=== PATIENT | female | born 1940 | race Caucasian/White ===

== ENCOUNTER → 2017-10-07 | Outpatient (CLI) | payer MEDICARE ==
[~2017-10-07] MED LIST: ESTR10TA VG; FLUT1DIS28 IH; HYDR1TAB8 OP; [UNRECOGNIZED DRUG - CODE] PO
--- NOTE | 2017-10-07 12:01 | Diagnostic Imaging Report ---
INDICATION: Routine screening. Comparison is made with prior mammogram from 06/08/2015 and 05/14/2014. 2-D and 3-D bilateral screening mammography was performed with a Computer Aided Detection (CAD) system. FINDINGS: Scattered fibroglandular densities are identified bilaterally. The breast parenchymal pattern is stable. No dominant mass or malignant-appearing microcalcifications are seen. Axillae are unremarkable. IMPRESSION: No mammographic features suspicious for malignancy are identified. ACR BI-RADS Category 1: Negative. Result letter will be mailed to the patient. Note: At least 10% of breast cancer is not imaged by mammography. Dictated by: Dictated on workstation # [id number]
== END ==
LOC: RAD 09:04
PROVIDERS: ATTEND Obstetrics & Gynecology
DX: Z12.31 Encounter for screening mammogram for malignant neoplasm of breast (principal)
CPT/HCPCS: 77067

== ENCOUNTER → 2018-10-13 | Outpatient (CLI) | payer MEDICARE ==
--- NOTE | 2018-10-13 21:01 | Diagnostic Imaging Report ---
INDICATION: Screening TECHNIQUE: The current study was also evaluated with a Computer Aided Detection (CAD) system. 3-D Tomographic imaging was also performed. COMPARISONS: 10/07/2017, 06/08/2015, 11/30/2014 and 05/14/2014. FINDINGS: There are scattered fibroglandular densities bilaterally. There is no dominant mass, spiculated lesion or suspicious calcification identified. A few benign type calcifications are identified. The skin, nipples and axillae are unremarkable. IMPRESSION: BI-RADS Category 2 benign. ACR BI-RADS Category 2: Benign findings. Result letter will be mailed to the patient. Note: At least 10% of breast cancer is not imaged by mammography. Dictated by: Dictated on workstation # [id number]
== END ==
LOC: RAD 07:53
PROVIDERS: ATTEND Family Medicine
DX: Z12.31 Encounter for screening mammogram for malignant neoplasm of breast (principal)
CPT/HCPCS: 77067

== ENCOUNTER → 2019-10-16 | Outpatient (CLI) | payer MEDICARE ==
--- NOTE | 2019-10-16 12:32 | Diagnostic Imaging Report ---
INDICATION: Routine screening. Comparison is made prior mammogram from 10/13/2018 and 10/07/2017. 2-D and 3-D bilateral screening mammography was performed with CAD. Scattered fibroglandular densities are identified bilaterally. A nodular density medial right breast mid depth is stable and consistent with benign etiology. No new mass or malignant appearing microcalcifications are seen. Axillae are unremarkable. IMPRESSION: BI-RADS Category 2 No mammographic features suspicious for malignancy are identified. ACR BI-RADS Category 2: Benign findings. Result letter will be mailed to the patient. Note: At least 10% of breast cancer is not imaged by mammography. Dictated by: Dictated on workstation # [id number]
== END ==
LOC: RAD 08:30
PROVIDERS: ATTEND Family Medicine
DX: Z12.31 Encounter for screening mammogram for malignant neoplasm of breast (principal)
CPT/HCPCS: 77063; 77067

== ENCOUNTER 2021-10-04 04:52 | Emergency (ER) | payer MEDICARE ==
[~2021-10-04] VITALS: Ht 162.5 cm; Wt 73.4 kg
[2021-10-04] MEDS ORDERED: KETOROLAC 30 MG/ML VIAL IVP STA (05:08)
[2021-10-04] MEDS ORDERED: ONDANSETRON 4 MG/2 ML (SDV) Z0FRAN IVP ONE (05:15)
[2021-10-04] MEDS ORDERED: NS IV 1000 ML 1,000 ML IV SCH (05:15)
--- NOTE | 2021-10-04 05:18 | ED GU-Female ---
General Stated Complaint: POSS KIDNEY STONES,RT SIDE,VOMITING Source: patient, spouse (JONAYUE Allison CAI) History of Present Illness Date Seen by Provider: Oct 04, 2021 Time Seen by Provider: 05:08 Initial Comments PT ARRIVES VIA POV FROM HOME C/O RIGHT FLANK PAIN SINCE 2129 LAST NIGHT PAIN RADIATES TO RIGHT LOWER ABDOMEN AND SUPRAPUBIC AREA C/O NAUSEA AND VOMITING AND DRY HEAVES TRIED TO TAKE TYLENOL BUT COULD NOT KEEP IT DOWN NO FEVER UNABLE TO URINATE AT THIS TIME HAS HISTORY OF KIDNEY STONES AND THIS FEELS THE SAME--LAST ONE WAS 22 YEARS AGO. HAS HAD TO HAVE OPEN SURGICAL REMOVAL OF KIDNEY STONE IN THE PAST. HAS BEEN FOLLOWED BY DR. KUMARI IN THE PAST PCP: DR. PERDOMO UROLOGIST: DR. KUMARI (YUE TENORIO DO) Allergies and Home Medications Allergies Coded Allergies: No Known Drug Allergies (Unverified , 01/03/10) Patient Home Medication List Home Medication List Reviewed: Yes (SANDRA PINTO MD) Cephalexin (Cephalexin) 500 Mg Capsule, 500 MG PO BID Prescribed by: SANDRA PINTO on 10/04/21 0735 Estradiol (Vagifem) 10 Mcg Tablet, 10 MCG VG HS, (Reported) Entered as Reported by: MAKENZIE ALVARADO on 03/23/10 1159 Fluticasone/Salmeterol (Advair 100 Mcg/50 Mcg 60's) 1 Disk Inhp, 1 PUFF IH DAILY PRN, (Reported) Entered as Reported by: MAKENZIE ALVARADO on 03/23/10 1159 Hydrocodone Bit/Acetaminophen (HYDROcodone/APAP 5 MG/325 MG TAB) 1 Tab Tab, 1 TAB PO Q6H Prescribed by: SANDRA PINTO on 10/04/21 0736 Hydrocodone Bit/Ibuprofen (Vicoprofen 200-7.5 Mg Tab) 1 Each Tablet, 1-2 EACH OP Q 4 - 6 HRS PRN Prescribed by: YUE TENORIO on 01/05/11 0006 Ondansetron (Ondansetron Odt) 4 Mg Tab.rapdis, 4 MG PO Q6H PRN for NAUSEA/VOMITING Prescribed by: SANDRA PINTO on 10/04/21 0737 Risedronate Sodium (Actonel) 75 Mg Tablet, 75 MG PO SUNDAYS, (Reported) Entered as Reported by: MAKENZIE ALVARADO on 03/23/10 1159 Tamsulosin HCl (Flomax) 0.4 Mg Cap, 0.4 MG PO DAILY Prescribed by: SANDRA PINTO on 10/04/21 0735 Review of Systems Review of Systems Constitutional: no symptoms reported Gastrointestinal: see HPI, abdominal pain, nausea, vomiting Genitourinary: see HPI, flank pain Musculoskeletal: see HPI, back pain (YUE TENORIO DO) Past Ywxicvr-Hqvvew-Avtvcc Hx Patient Social History Tobacco Use?: No Substance use?: No Alcohol Use?: No (YUE TENOROI DO) Past Medical History Surgeries: Yes Bladder Surgery, Orthopedic Respiratory: Yes Asthma Cardiac: Yes Hypertension Neurological: No Reproductive Disorders: No Genitourinary: Yes Kidney Stones Gastrointestinal: No Musculoskeletal: Yes Osteoporosis Endocrine: No HEENT: No Cancer: No Psychosocial: No Integumentary: No Blood Disorders: No (YUE TENORIO DO) Family Medical History PAST SURGICAL HISTORY: -CYSTOCOELE REPAIR [address] TRIPATHI -OPEN KIDNEY STONE REMOVAL -PATELLA FRACTURE REPAIR (YUE TENORIO DO) Physical Exam Vital Signs Vital Signs - First Documented 10/04/21 05:05 Temp 36.4 Pulse 69 Resp 18 B/P (MAP) 173/96 (121) Pulse Ox 98 O2 Delivery Room Air (SANDRA PINTO MD) Vital Signs Capillary Refill : (YUE TENORIO DO) Height, Weight, BMI Height: '" Weight: lbs. oz. kg; BMI Method: General Appearance: WD/WN, other (LOOKS UNCOMFORTABLE, ROCKING BACK AND FORTH, FREQUENTLY DRY HEAVING. ) Cardiovascular: regular rate, rhythm Respiratory: normal breath sounds, no respiratory distress, no accessory muscle use Gastrointestinal: soft, tenderness Back: no vertebral tenderness, CVA tenderness (R) Extremities: normal inspection, no pedal edema, normal capillary refill Neurologic/Psychiatric: no motor/sensory deficits, alert, oriented x 3 Skin: normal color, warm/dry; No rash (YUE TENORIO DO) Progress/Results/Core Measures Suspected Sepsis SIRS Temperature: Pulse: Respiratory Rate: Laboratory Tests 10/04/21 05:17: White Blood Count 12.6H Blood Pressure / Mean: Laboratory Tests 10/04/21 05:17: Creatinine 1.28, Platelet Count 314, Total Bilirubin 1.0 (JONA,YUE K DO) Results/Orders Lab Results Laboratory Tests Test 10/04/21 05:17 10/04/21 06:18 Range/Units White Blood Count 12.6 H 4.3-11.0 10^3/uL Red Blood Count 4.98 3.80-5.11 10^6/uL Hemoglobin 15.3 11.5-16.0 g/dL Hematocrit 45 35-52 % Mean Corpuscular Volume 90 80-99 fL Mean Corpuscular Hemoglobin 31 25-34 pg Mean Corpuscular Hemoglobin Concent 34 32-36 g/dL Red Cell Distribution Width 13.0 10.0-14.5 % Platelet Count 314 130-400 10^3/uL Mean Platelet Volume 11.2 9.0-12.2 fL Immature Granulocyte % (Auto) 0 % Neutrophils (%) (Auto) 89 H 42-75 % Lymphocytes (%) (Auto) 7 L 12-44 % Monocytes (%) (Auto) 3 0-12 % Eosinophils (%) (Auto) 0 0-10 % Basophils (%) (Auto) 0 0-10 % Neutrophils # (Auto) 11.2 H 1.8-7.8 10^3/uL Lymphocytes # (Auto) 0.9 L 1.0-4.0 10^3/uL Monocytes # (Auto) 0.4 0.0-1.0 10^3/uL Eosinophils # (Auto) 0.0 0.0-0.3 10^3/uL Basophils # (Auto) 0.0 0.0-0.1 10^3/uL Immature Granulocyte # (Auto) 0.0 0.0-0.1 10^3/uL Sodium Level 139 135-145 MMOL/L Potassium Level 3.9 3.6-5.0 MMOL/L Chloride Level 104 98-107 MMOL/L Carbon Dioxide Level 21 21-32 MMOL/L Anion Gap 14 5-14 MMOL/L Blood Urea Nitrogen 17 7-18 MG/DL Creatinine 1.28 0.60-1.30 MG/DL Estimat Glomerular Filtration Rate 43 BUN/Creatinine Ratio 13 Glucose Level 149 H 70-105 MG/DL Calcium Level 11.0 H 8.5-10.1 MG/DL Corrected Calcium 10.7 H 8.5-10.1 MG/DL Total Bilirubin 1.0 0.1-1.0 MG/DL Aspartate Amino Transf (AST/SGOT) 17 5-34 U/L Alanine Aminotransferase (ALT/SGPT) 16 0-55 U/L Alkaline Phosphatase 109 40-136 U/L Total Protein 7.8 6.4-8.2 GM/DL Albumin 4.4 3.2-4.5 GM/DL Amylase Level 40 25-125 U/L Lipase 27 8-78 U/L Urine Color YELLOW Urine Clarity CLEAR Urine pH 8.0 5-9 Urine Specific [place] 1.020 1.016-1.022 Urine Protein NEGATIVE NEGATIVE Urine Glucose (UA) NEGATIVE NEGATIVE Urine Ketones TRACE H NEGATIVE Urine Nitrite NEGATIVE NEGATIVE Urine Bilirubin NEGATIVE NEGATIVE Urine Urobilinogen 0.2 < = 1.0 MG/DL Urine Leukocyte Esterase 1+ H NEGATIVE Urine RBC (Auto) NEGATIVE NEGATIVE Urine RBC NONE /HPF Urine WBC 0-2 /HPF Urine Squamous Epithelial Cells 0-2 /HPF Urine Crystals PRESENT H /LPF Urine Amorphous Sediment LARGE BRITNEY PHOSPHATE H /LPF Urine Bacteria NEGATIVE /HPF Urine Casts NONE /LPF Urine Mucus NEGATIVE /LPF Urine Culture Indicated NO (SANDRA PINTO MD) My Orders Orders - SANDRA PINTO MD Fentanyl Inj (Sublimaze Injection) (10/04/21 06:40) Hydrocodone/Apap 5/325 Tablet (Lortab 5 (10/04/21 07:30) (SANDRA IPNTO MD) Medications Given in ED Current Medications Medications Dose Ordered Sig/Sil Route Start Time Stop Time Status Last Admin Dose Admin Acetaminophen/ Hydrocodone Bitart 1 ea ONCE ONCE PO 10/04/21 07:30 10/04/21 07:31 DC 10/04/21 07:39 1 EA Ondansetron HCl 4 mg ONCE ONCE IVP 10/04/21 05:15 10/04/21 05:16 DC 10/04/21 05:23 4 MG (SANDRA PINTO MD) Vital Signs/I&O 10/04/21 05:05 Temp 36.4 Pulse 69 Resp 18 B/P (MAP) 173/96 (121) Pulse Ox 98 O2 Delivery Room Air (SANDRA PINTO MD) Vital Signs/I&O Capillary Refill : (YUE TENORIO DO) Progress Note : Progress Note GIVEN IV FLUIDS, TORADOL AND ZOFRAN 0600--CARE TURNED OVER TO DR. PINTO, ALL STUDIES PENDING. (YUE TENORIO DO) Progress Note : Progress Note Assumed care of the patient pending CT scan. Monitor patient. 726: Patient did receive fentanyl 50 mcg IV for pain which has helped. We have ordered a hydrocodone 5/325 1 tab p.o. now. I did discuss the case with Dr. Kumari. He will evaluate CT scan and contact me back. Patient feels comfortable to go home so we will likely set her up for outpatient therapy. Patient was in agreement with this. Monitor patient. 47: Case discussed again and he will see her in office. Patient tolerated meds well. Discharged home with return precautions. Patient verbalized understanding instructions and agreement with plan. (SANDRA PINTO MD) Departure Impression Primary Impression: Right ureteral stone Disposition: HOME, SELF-CARE Condition: Stable Departure-Patient Inst. Decision time for Depature: 07:31 (SANDRA PINTO MD) Referrals: SKYE PERDOMO MD (PCP/Family) Primary Care Physician RD KUMARI MD Patient Instructions: Kidney Stone, Adult ED, How to Strain Your Urine Add. Discharge Instructions: Call Dr. Kumari's office today for appointment tomorrow or Saturday. Take medications as directed. You may take ibuprofen 400 mg every 8 hours as needed for pain. You should strain your urine and monitor for stone passing. Drink plenty of fluids. Return for worse pain, weakness, fever, vomiting or other concerns as needed. Scripts Ondansetron (Ondansetron Odt) 4 Mg Tab.rapdis 4 MG PO Q6H PRN for NAUSEA/VOMITING, #12 TAB 0 Refills Prov: SANDRA PINTO MD 10/04/21 Tamsulosin HCl (Flomax) 0.4 Mg Cap 0.4 MG PO DAILY for 14 Days, #14 CAP 0 Refills Prov: SANDRA PINTO MD 10/04/21 Hydrocodone Bit/Acetaminophen (HYDROcodone/APAP 5 MG/325 MG TAB) 1 Tab Tab 1 TAB PO Q6H for Pain, #12 TAB 0 Refills Prov: SANDRA PINTO MD 10/04/21 Cephalexin (Cephalexin) 500 Mg Capsule 500 MG PO BID for 7 Days, #14 CAP 0 Refills Prov: SANDRA PINTO MD 10/04/21 Copy Copies To 1: RD KUMARI MD, LISA K DO Oct 04, 2021 05:18 SANDRA PINTO MD Oct 04, 2021 06:16
[2021-10-04 05:23] LABS: BASOPHILS % (AUTO) 0 % (0-10); EOSINOPHILS % (AUTO) 0 % (0-10); HEMATOCRIT 45 % (35-52); HEMOGLOBIN 15.3 g/dL (11.5-16.0); LYMPHOCYTES # (AUTO) 0.9 10^3/uL (1.0-4.0); LYMPHOCYTES % (AUTO) 7 % (12-44); MEAN CORPUSCULAR HEMOGLOBIN 31 pg (25-34); MEAN CORPUSCULAR HGB CONC 34 g/dL (32-36); MEAN CORPUSCULAR VOLUME 90 fL (80-99); MEAN PLATELET VOLUME 11.2 fL (9.0-12.2); MONOCYTES # (AUTO) 0.4 10^3/uL (0.0-1.0); MONOCYTES % (AUTO) 3 % (0-12); NEUTROPHILS # (AUTO) 11.2 10^3/uL (1.8-7.8); NEUTROPHILS % (AUTO) 89 % (42-75); PLATELET COUNT 314 10^3/uL (130-400); WHITE BLOOD COUNT 12.6 10^3/uL (4.3-11.0)
[2021-10-04 05:31] LABS: ALBUMIN 4.4 GM/DL (3.2-4.5); POTASSIUM 3.9 MMOL/L (3.6-5.0)
[2021-10-04 05:34] LABS: TOTAL PROTEIN 7.8 GM/DL (6.4-8.2)
[2021-10-04 05:38] LABS: CREATININE SERUM 1.28 MG/DL (0.60-1.30)
--- NOTE | 2021-10-04 06:20 | Diagnostic Imaging Report ---
PROCEDURE: CT urinary tract, rule out kidney stone. TECHNIQUE: Multiple contiguous axial images were obtained through the abdomen and pelvis without the use of intravenous contrast. Auto Exposure Controls were utilized during the CT exam to meet ALARA standards for radiation dose reduction. INDICATION: Right flank pain accompanied by nausea and vomiting onset 1 day. No priors. FINDINGS: There is moderate to severe right hydroureteronephrosis. Ureteral transition occurs where the ureter crosses the iliac vessels and a 2.3 mm stone is present (image 116 series 2). There is extensive right perinephric stranding but no adjacent loculated fluid collection or subcapsular collection. There is likely punctate 1 mm nonobstructing stone within a right upper pole calyx. The contralateral left kidney unobstructed, nonfocal and nonacute. The appendix air-containing well visualized and normal. The uterus, adnexa and urinary bladder itself appeared normal. There is no bowel obstruction nor ileus. There is no abnormal fecal loading. Liver, gallbladder, bile ducts, spleen, adrenals and pancreas normal. There is a small hiatal hernia with the lung bases and the bony structures appearing nonacute. IMPRESSION: 1. 2.3 mm stone junction mid to distal thirds right ureter results in moderate to severe upstream hydronephrosis with extensive right perinephric stranding and fluid but no loculated collection. 2. Likely an additional punctate nonobstructing upper pole right renal calculus with negative left kidney. 3. Small hiatal hernia, nonaneurysmal aortic atherosclerosis; normal appendix, no other acute appearing abnormality. Dictated by: Dictated on workstation # [id number]
[2021-10-04 06:29] LABS: BILIRUBIN,URINE NEGATIVE (NEGATIVE); CLARITY,URINE CLEAR; COLOR,URINE YELLOW; GLUCOSE, URINE (UA) NEGATIVE (NEGATIVE); KETONES,URINE TRACE (NEGATIVE); LEUKOCYTE ESTERASE ,URINE 1+ (NEGATIVE); NITRITE,URINE NEGATIVE (NEGATIVE); PROTEIN,URINE NEGATIVE (NEGATIVE)
[2021-10-04] MEDS ORDERED: fentaNYL INJ 100 MCG/2 ML AMP IVP STA (06:40)
[2021-10-04 06:43] LABS: AMORPHOUS SEDIMENT,UR LARGE AMOR PHOSPHATE /LPF; BACTERIA,URINE NEGATIVE /HPF; SQUAMOUS EPITHELIAL CELL,UR 0-2 /HPF; WBC,URINE 0-2 /HPF
--- NOTE | 2021-10-04 07:22 | Diagnostic Imaging Report ---
INDICATION: Right flank pain, nausea, vomiting, history of nephrolithiasis. FINDINGS: The calculus in the right ureter well visualized at earlier CT is imperceptible at this exam perhaps obscured by the overlying bony pelvis. Bowel gas pattern itself unremarkable. IMPRESSION: The known stone in the right ureter cannot be detected radiographically at this exam. No acute finding apparent at the study. Dictated by: Dictated on workstation # [id number]
[2021-10-04] MEDS ORDERED: HYDROcodone/APAP 5 MG/325 MG (LORTAB) TAB PO ONE (07:30)
[2021-10-04] MEDS ORDERED: ACHD5005 PO (07:35)
[2021-10-04] MEDS ORDERED: CEPH500C PO (07:35)
[2021-10-04] MEDS ORDERED: TMSL.4C PO (07:35)
[2021-10-04] MEDS ORDERED: ONDA4TAB11 PO (07:37)
[2021-10-04 07:52] VITALS: BP 156/77
== END 2021-10-04 07:52 | disposition home or self-care (01) ==
LOC: EDUNIT# 04:52 → ER 04:54
DX: N20.1 Calculus of ureter (principal)
CPT/HCPCS: 36415; 74018; 74176; 80053; 81000; 82150; 83690; 85025

== ENCOUNTER 2021-10-05 07:33 | Outpatient (CLI) | payer MEDICARE ==
[~2021-10-05] VITALS: Ht 160.1 cm; Wt 70.5 kg
[~2021-10-05 07:33] MED LIST changes: +ACHD5005 PO; +CEPH500C PO; +ONDA4TAB11 PO; +TMSL.4C PO
[2021-10-06] MEDS ORDERED: AMLO2.5T4 PO (18:08)
== END 2021-10-06 18:31 | disposition home or self-care (01) ==
LOC: PREOP 07:33
PROVIDERS: ATTEND Urology
DX: Z01.818 Encounter for other preprocedural examination (principal); N20.1 Calculus of ureter

== ENCOUNTER 2021-10-10 06:07 | Day surgery (SDC) | payer MEDICARE ==
[~2021-10-10] VITALS: Ht 160 cm; Wt 70.5 kg
[2021-10-10] VITALS (11 sets, daily range): BP systolic 100–182; BP diastolic 65–92
[~2021-10-10 06:07] MED LIST changes: +AMLO2.5T4 PO
[2021-10-10] MEDS ORDERED: cefTRIAXone 1 GM PRE-MIX 50 ML IV ONE (06:30)
[2021-10-10] MEDS ORDERED: LACTATED RINGERS 1,000 ML IV PRN (06:30)
--- NOTE | 2021-10-10 06:53 | Progress Note-Pre Operative ---
Pre-Operative Progress Note Date of Available H&P: Oct 10, 2021 Date H&P Reviewed: Oct 10, 2021 Time H&P Reviewed: 06:52 Changes from last HP NO CHANGE Pre-Operative Diagnosis: RT DISTAL URETERAL STONE AND POSSIBLE URETERAL STRICTURE RD GARNETT MD Oct 10, 2021 06:53
[2021-10-10] MEDS ORDERED: fentaNYL INJ 100 MCG/2 ML AMP ONE (06:55)
[2021-10-10] MEDS ORDERED: ONDANSETRON 4 MG/2 ML (SDV) Z0FRAN ONE (06:55)
[2021-10-10] MEDS ORDERED: MIDAZOLAM 2 MG/2 ML (VERSED) VIAL ONE (06:55)
[2021-10-10] MEDS ORDERED: SEVOFLURANE (ULTANE) 15 ML INHAL SOLN ONE (06:55)
[2021-10-10] MEDS ORDERED: LIDOCAINE PF 2% 5 ML (XYLOCAINE) VIAL ONE (06:55)
[2021-10-10] MEDS ORDERED: proPOfol 200 MG/20 ML (DIPRIVAN) VIAL IV ONE (06:55)
[2021-10-10] MEDS ORDERED: GLYCOPYRROLATE 0.2 MG/ML (ROBINUL) 2 ML VIAL ONE (07:32)
--- NOTE | 2021-10-10 07:46 | Diagnostic Imaging Report ---
EXAMINATION: Abdominal radiographs, single view. DATE: October 10, 2021. CLINICAL INDICATION: 81-year-old female, shock wave lithotripsy. COMPARISON: CT abdomen pelvis October 04, 2021. KUB October 04, 2021. COMMENTS: There are no abnormally dilated gas-filled segments of bowel. The previously noted 2 mm stone in the right distal ureter is not well seen radiographically. There is no radiographically visible renal or ureteral stone. There are multilevel degenerative changes of the spine. IMPRESSION: 1. Previously noted stone in the right distal ureter on prior CT exam on October 04, 2021 is not well seen radiographically. Dictated by: Dictated on workstation # [id number]
--- NOTE | 2021-10-10 07:51 | Anesthesia-General Post-Op ---
General Patient Condition Mental Status/LOC: Same as Preop Cardiovascular: Satisfactory Nausea/Vomiting: Absent Respiratory: Satisfactory Pain: Controlled Complications: Absent Post Op Complications Complications None Follow Up Care/Instructions Patient Instructions None needed. Anesthesia/Patient Condition Patient Condition Patient is doing well, no complaints, stable vital signs, no apparent adverse anesthesia problems. No complications reported per nursing. GABRIEL SRIVASTAVA CRNA Oct 10, 2021 07:51
--- NOTE | 2021-10-10 07:57 | Progress Note-Post Operative ---
Post-Operative Progess Note Surgeon (s)/Technical Stenographer (s) Surgeon RD GARNETT MD Technical Stenographer: NONE Pre-Operative Diagnosis RT DISTAL URETERAL STONE AND POSSIBLE URETERAL STRICTURE Post-Operative Diagnosis SAME Procedure & Operative Findings Date of Procedure 10/10/21 Procedure Performed/Findings CYSTOSCOPY, RT RETROGRADE UROGRAM AND RT URETEROSCOPY Anesthesia Type GENERAL Estimated Blood Loss Estimated blood loss (mL): NONE Specimens/Packing Specimens Removed NONE Packing: NONE RD GARNETT MD Oct 10, 2021 07:57
--- NOTE | 2021-10-10 07:59 | Discharge Inst-Urology ---
Discharge Inst-Urology Reconcile Patient Problems Problems Reviewed?: Yes Final Diagnosis RT DISTAL URETERAL STONE (PASSED) AND NO URETERAL STRICTURE Patient Instructions/Follow Up Plan/Assessment/Instructions Please make appointment to been seen in office in 4 weeks. No Rx, No KUB's Increase oral fluids for 48 hours and then as needed. Diet and Activity as tolerated. If questions or concerns contact your physician Or seek help at emergency department. RD GARNETT MD Oct 10, 2021 07:59
[2021-10-10] MEDS ORDERED: ONDANSETRON 4 MG/2 ML (SDV) Z0FRAN IVP PRN (08:00)
[2021-10-10] MEDS ORDERED: MEPERIDINE (DEMEROL) INJ 50 MG/ML IVP ONE (08:00)
[2021-10-10] MEDS ORDERED: morphine INJ 10 MG/ML 1ML (SYR OR VIAL) IVP ONE (08:00)
--- NOTE | 2021-10-10 10:55 | OPERATIVE REPORT ---
DATE OF SERVICE: 10/10/2021 PREOPERATIVE DIAGNOSIS: Right distal ureteral stone, possible ureteral stricture. POSTOPERATIVE DIAGNOSIS: Right distal ureteral stone (passed) and no stricture. OPERATION PERFORMED: Cystoscopy, right retrograde urogram and right ureteroscopy. SURGEON: Awais Garnett MD. ANESTHESIA: General. COMPLICATIONS: None. DESCRIPTION OF PROCEDURE: Under satisfactory general anesthesia, the patient in lithotomy position, genitalia were prepped and draped in the usual sterile fashion. Cystoscope was introduced under vision. Cystoscopy was essentially normal with clear efflux equal bilaterally. Using the fore oblique lens, I dilated the right ureteral orifice intramural portion and passed a ureteral catheter all the way up to the renal pelvis. I backed up to just above the intramural portion and injected contrast. There was filling of the system. No evidence of stricture and no significant dilatation and complete emptying of the ureter. I removed the cystoscope and introduced the 6.9 [place] semi-rigid ureteroscope, went up to the mid ureter. There was no stricture, no stone and backed up again to confirm. I removed the ureteroscope, reinserted the cystoscope to empty the bladder. The patient tolerated the procedure and anesthesia well and was sent to recovery room in stable condition. CC: Dr. Breen - requested, unable to deliver. Job ID: [id number] DocumentID: [id number] Dictated Date: 10/10/2021 08:02:57 [employer] Date: 10/10/2021 10:55:22 Dictated By: AWAIS [facility]T MD [facility]
== END 2021-10-10 09:50 ==
LOC: SDC 06:07
PROVIDERS: ATTEND Urology
DX: N20.1 Calculus of ureter (principal)
CPT/HCPCS: 74018; 76000; 87081

== ENCOUNTER → 2021-11-28 | Outpatient (CLI) | payer MEDICARE ==
--- NOTE | 2021-11-28 11:30 | Diagnostic Imaging Report ---
INDICATION: Routine screening. COMPARISON: 10/16/2019 and 10/13/2018. TECHNIQUE: 2D and 3D bilateral screening mammography was performed with CAD. FINDINGS: Scattered fibroglandular densities are identified bilaterally. The parenchymal pattern is stable. The benign nodular right breast is stable. No new mass or malignant appearing microcalcifications are seen. The axillae are unremarkable. IMPRESSION: No mammographic features suspicious for malignancy are identified. ACR BI-RADS Category 2: Benign findings. Result letter will be mailed to the patient. Note: At least 10% of breast cancer is not imaged by mammography. Dictated by: Dictated on workstation # [id number]
--- NOTE | 2021-11-28 14:39 | Diagnostic Imaging Report ---
PROCEDURE: CT neck soft tissue without contrast. TECHNIQUE: Multiple contiguous axial images were obtained through the neck without the use of intravenous contrast. Auto Exposure Controls were utilized during the CT exam to meet ALARA standards for radiation dose reduction. INDICATION: Lump on right side of neck. COMPARISON: CT sinuses from 07/11/2012. FINDINGS: The airway is patent and there is no abnormal mural thickening within the pharynx or larynx. The true vocal folds are symmetric in position. No cervical lymphadenopathy is appreciated. Assessment for vascular lesion such as a glomus jugulare tumor is very suboptimal without IV contrast. There is also streak artifact from patient's dental amalgam which limits assessment of portions of the oropharynx and mouth. Epiglottis is normal in appearance. No mass at the base of the tongue. Soft palate is unremarkable. The thyroid, submandibular and parotid glands are normal in appearance. CSF attenuating mass in the right middle cranial fossa is stable since prior CT sinus from 2013 is most compatible with arachnoid cyst. Bilateral lens surgery has likely been performed. Mild mucosal thickening left sphenoid sinus. Cervical spine is mildly straightened without concerning abnormality. IMPRESSION: 1. No mass or lymphadenopathy in the neck by noncontrast imaging. Please note that assessment for a vascular tumor such as glomus jugulare is suboptimal without IV contrast. 2. Benign intracranial arachnoid cyst within the middle cranial fossa is stable since 2013. Dictated by: Dictated on workstation # [id number]
--- NOTE | 2021-11-28 16:49 | Diagnostic Imaging Report ---
INDICATION: Postmenopausal state. COMPARISON: 07/11/2012. FINDINGS: AP Spine L2-L4: [BMD (g/cm2): 1.096] [T-Score: -0.9] [Z-Score: 0.7] [BMD Previous: 1.083] [BMD % Change: 1.2] LT Hip Neck: [BMD (g/cm2): 0.744] [T-Score: -2.1] [Z-Score: -0.1] LT Hip Total: [BMD (g/cm2):0.769] [T-Score:-1.9] [Z-Score: -0.1] [BMD Previous: 0.841] [BMD % Change: -8.6] RT Hip Neck: [BMD (g/cm2):0.726] [T-Score:-2.2] [Z-Score:-0.3] RT Hip Total: [BMD (g/cm2):0.780] [T-score:-1.8] [Z-Score:0.0] [BMD Previous:0.842] [BMD % Change:-7.4] *Indicates significant change from prior examination based on 95% confidence level. World Health Organization criteria for BMD interpretation classify patients as Normal (T-score at or above -1.0), Osteopenic (T-score between -1.0 and -2.5) or Osteoporotic (T-score at or below -2.5). LIMITATIONS AND MODIFICATION: None. FRACTURE RISK (FRAX SCORE): The ten year probability of (%): Major Osteoporotic Fracture: [17.0] Hip Fracture: [5.4] IMPRESSION: 1. Osteopenia (Low bone mass). 2. Bone mineral density within the bilateral hips has significantly decreased since the prior examination. Bone mineral density within the lumbar spine has not significantly changed. 3. See below National Osteoporosis Foundation guidelines on when to potentially initiate pharmacologic therapy. Based on the National Osteoporosis Foundation Guidelines, pharmacologic treatment should be initiated in any of the following, unless clinical conditions suggest otherwise: * Any patient with prior fragility fracture of the hip or vertebrae. A spine fracture indicates 5X risk for subsequent spine fracture and 2X risk for subsequent hip fracture. * Osteoporosis (T-score <-2.5). * Postmenopausal women and men age 50 and older with low bone mass/osteopenia (T-score between -1.0 and -2.5) by DXA and 10-year major osteoporotic fracture greater than 20% or a 10-year probability of hip fracture greater than 3%. These fracture risks are supplied above in the FRAX score, if applicable. * Clinician judgement and/or patient preferences may indicate treatment for people with 10-year fracture probabilities above or below these levels. Dictated by: Dictated on workstation # [id number]
== END ==
LOC: RAD 08:28
PROVIDERS: ATTEND Nurse Practitioner Family
DX: Z12.31 Encounter for screening mammogram for malignant neoplasm of breast (principal); G93.0 Cerebral cysts; M85.80 Other specified disorders of bone density and structure, unspecified site; Z78.0 Asymptomatic menopausal state
CPT/HCPCS: 70490; 77063; 77067; 77080

== ENCOUNTER → 2021-12-06 | Outpatient (CLI) | payer MEDICARE ==
[~2021-12-06] MED LIST changes: +CATHETER FLUSH 10 ML SYR IV PRN; +HOLD METFORMIN - RECEIVED CONTRAST 20 ML VIAL IV SCH; +IOHEXOL 350 MG/ML 100 ML (OMNIPAQUE 350) VIAL IV ONE; +NS 100 ML (IVPB) BAG IV ONE
--- NOTE | 2021-12-06 12:22 | Diagnostic Imaging Report ---
PROCEDURE: CT neck soft tissue with contrast. TECHNIQUE: Multiple contiguous axial images were obtained through the neck after the administration of contrast. Auto Exposure Controls were utilized during the CT exam to meet ALARA standards for radiation dose reduction. INDICATION: Lump on the right side of the neck. COMPARISON: 11/28/2021. FINDINGS: No enhancing masses are seen in the neck. The vascular structures are widely patent. Otherwise, the exam is stable compared to the exam performed 8 days ago. IMPRESSION: 1. No evidence of enhancing mass in the neck. No change since the exam 8 days ago. Dictated by: Dictated on workstation # [id number]
== END ==
LOC: RAD 09:12
PROVIDERS: ATTEND Nurse Practitioner Family
DX: R22.1 Localized swelling, mass and lump, neck (principal)
CPT/HCPCS: 70491

== ENCOUNTER 2022-02-28 05:34 | Outpatient (CLI) | payer MEDICARE ==
[~2022-02-28] VITALS: Ht 160.1 cm; Wt 70.5 kg
[~2022-02-28 05:34] MED LIST changes: -CATHETER FLUSH 10 ML SYR IV PRN; -HOLD METFORMIN - RECEIVED CONTRAST 20 ML VIAL IV SCH; -IOHEXOL 350 MG/ML 100 ML (OMNIPAQUE 350) VIAL IV ONE; -NS 100 ML (IVPB) BAG IV ONE
[2022-02-28] MEDS ORDERED: BUDE10.22 PO (10:20)
== END 2022-02-28 11:05 ==
LOC: PREOP 05:34
PROVIDERS: ATTEND Internal Medicine
DX: Z01.818 Encounter for other preprocedural examination (principal); Z12.11 Encounter for screening for malignant neoplasm of colon

== ENCOUNTER 2022-03-02 09:20 | Day surgery (SDC) | payer MEDICARE ==
--- NOTE | 2022-02-28 06:56 | HISTORY AND PHYSICAL ---
DATE OF SERVICE: 03/02/2022 COLONOSCOPY HISTORY AND PHYSICAL HISTORY OF PRESENT ILLNESS: The patient is a 81-year-old white female referred for screening colonoscopy by Dr. Breen. She had another colonoscopy performed by myself 13 years ago, at which time she had one nonthrombosed internal hemorrhoid with an otherwise normal colonoscopy to the cecum. She is not aware of any family history for colon cancer. She does have a sister who has had a number of colon polyps removed, none reportedly malignant. PAST MEDICAL HISTORY: Significant for hypertension and asthma. She does report a chronic cough, mostly at night. She has seen a field research assistant and they did not feel that it was secondary to asthma. She takes Symbicort and this appears to be under good control. She does report intermittent heartburn symptoms and has not been taking anything on a regular basis for this. PAST SURGICAL HISTORY: Significant for ORIF of a patellar fracture in 2010. 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 It has been reportedly stable in size since. SOCIAL HISTORY: She is retired and with no past smoking or drinking history. REVIEW OF SYSTEMS: CONSTITUTIONAL: Denies night sweats, chills, fever, change in weight. PULMONARY: Pertinent for nonproductive cough predominantly in the evening and does occasionally wake her up at night. Not as much during the day. She denies dyspnea on exertion. CARDIOVASCULAR: Denies chest pain, orthopnea, PND, pedal edema or syncope. GASTROINTESTINAL: She denies bowel habit change, bright red blood per rectum, melena or abdominal pain. PHYSICAL EXAMINATION: GENERAL: Reveals a white female who appeared to be in no acute distress, appearing younger than stated age. VITAL SIGNS: Blood pressure initially 150/110, at the end of the interview 140/92. HEENT: Unremarkable. Sclerae nonicteric. CHEST: Clear to auscultation. CARDIOVASCULAR: Reveals a regular rate and rhythm without murmur, S3, or S4. ABDOMEN: Soft, supple without mass, organomegaly, or tenderness. EXTREMITIES: Reveal no cyanosis, clubbing or edema. ASSESSMENT AND PLAN: 1. The patient is being set up for screening colonoscopy. Prep instructions were given and questions were answered. 2. Considering nocturnal cough and reported negative pulmonary workup, I did give the patient a prescription for 30 days of omeprazole to be taken before the evening meal considering predominant nocturnal symptoms and to give it two months. She was given 1 refill. If there is not significant improvement in her symptoms, she was advised to discontinue the medication. If there is significant improvement, she is to see of that getting further refills through Dr. Breen's office. Job ID: [id number] DocumentID: [id number] Dictated Date: 02/26/2022 16:00:04 Bench Worker Binding Date: 02/26/2022 16:41:00 Dictated By: MARCY BERRY MD
[~2022-03-02] VITALS: Ht 160 cm; Wt 70.5 kg
[~2022-03-02 09:20] MED LIST changes: +BUDE10.22 PO
[2022-03-02] MEDS ORDERED: LACTATED RINGERS 1,000 ML IV STA (09:29)
[2022-03-02 09:40] VITALS: BP 158/91
[2022-03-02] MEDS ORDERED: LACTATED RINGERS 1,000 ML IV ONE (09:45)
--- NOTE | 2022-03-02 09:49 | Pre-Op Note & Conscious Sedat ---
Pre-Operative Progress Note Date H&P Reviewed: Mar 02, 2022 Time H&P Reviewed: 09:48 History & Physical: H&P Reviewed, Patient Examed, No changes noted Pre-Op Diagnosis: screening Conscious Sedation Pre-Proced ASA Score 2 For ASA 3 and 4: Consider anesthesia and medical clearance. Also, for patients with a history of failed moderate sedation consider anesthesia. Airway Lungs Heart ASA score ASA 1: a normal healthy patient ASA 2: a patient with a mild systemic disease (mid diabetes, controlled hypertension, obesity ASA 3: a patient with a severe systemic disease that limits activity (angina, COPD, prior Myocardial infarction) ASA 4: a patient with an incapacitating disease that is a constant threat to life (CHF, renal failure) ASA 5: a moribund patient not expected to survive 24 hrs. (ruptured aneurysm) ASA 6: a declared brain- patient whose organs are being harvested. For emergent operations, add the letter E after the classification Mallampati Classification Grade 2 Sedation Plan Analgesia, Amnesia, Plan communicated to team members, Discussed options with patient/fam, Discussed risks with patient/fam The patient is an appropriate candidate to undergo the planned procedure, sedation, and anesthesia. The patient immediately re-assessed prior to indication. MARCY BERRY MD Mar 02, 2022 09:49
[2022-03-02] MEDS ORDERED: proPOfol 200 MG/20 ML (DIPRIVAN) VIAL IV ONE ×2 (10:16→10:44)
--- NOTE | 2022-03-02 10:46 | Progress Note-Post Operative ---
Post-Procedure Note Physician (s)/Equities Analyst (s) Physician MARCY BERRY MD Pre-Procedure Diagnosis Pre-Procedure Diagnosis: screening Post-Procedure Diagnosis Post-operative diagnosis: Prior to undergoing colonoscopy digital rectal evaluation was performed. Anal central tone was normal and the perianal reflexes intact. No abnormalities noted on digital inspection of the anal canal or distal rectal vault. The colonoscope was then inserted into the rectum and under direct visualization advanced to the cecum. The cecum was identified by identification of the ileocecal valve and the cecal strap. Photographic documentation was obtained. A careful inspection was made as the colonoscope was withdrawn. Quality the prep was good. Findings there were no evidence for internal or external hemorrhoids and the rectum was unremarkable. Present in the distal sigmoid colon was a 3 mm sessile hyperplastic appearing polyp was biopsied ablated and submitted fresh to pathology. A similar 4 mm polyp was noted in the mid sigmoid colon it was biopsied and ablated with no subsequent blood loss as well. No evidence of diverticular disease was noted. The descending colon splenic flexure transverse colon hepatic flexure ascending colon and cecum were unremarkable. Assessment 2 diminutive hyperplastic appearing polyps were biopsied and cauterized today with no blood loss. This is an otherwise normal colonoscopy to the cecum. As long as there are no surprises on histopathology report would not advocate future screening colonoscopy. Sincerely, Marcy Berry MD. CC: Dr. Nataliia PERDOMO MD. MARCY BERRY MD Mar 02, 2022 10:46
[2022-03-02 10:49] VITALS: BP 154/69
[2022-03-02 10:54] VITALS: BP 138/78
[2022-03-02 11:00] VITALS: BP 138/78
[2022-03-02 11:26] VITALS: BP 138/78
--- NOTE | 2022-03-02 14:51 | Anesthesia-General Post-Op ---
MAC Patient Condition Mental Status/LOC: Same as Preop Cardiovascular: Satisfactory Nausea/Vomiting: Absent Respiratory: Satisfactory Pain: Controlled Complications: Absent Post Op Complications Complications None Follow Up Care/Instructions Patient Instructions None needed. Anesthesiology Discharge Order Discharge Order Patient was doing well after the procedure with no complaints, stable vital signs, no apparent adverse anesthesia problems. No complications reported per nursing. ISABELLA PRESTON DO Mar 02, 2022 14:51
--- NOTE | 2022-03-05 14:29 | Physician Query-Final Dx ---
CHRISS WHALEN 03/05/22 1429: Clinic Account Progress/Dx Physician Query: Dr. Berry: Please clarify how polyps were removed: 1. hot biopsy 2. cold biopsy Date of Service Mar 02, 2022 at 09:20 MARCY BERRY MD 03/05/22 1448: Clinic Account Progress/Dx DIAGNOSIS: Diagnosis 2. CHRISS WHALEN Mar 05, 2022 14:29 MARCY BERRY MD Mar 05, 2022 14:48
== END 2022-03-02 11:40 | disposition home or self-care (01) ==
LOC: ENDO 09:20
PROVIDERS: ATTEND Internal Medicine
DX: Z12.11 Encounter for screening for malignant neoplasm of colon (principal); K63.5 Polyp of colon; R05.3 Chronic cough; Z79.899 Other long term (current) drug therapy